=== PATIENT | female | born 1980 | race Caucasian/White ===

== ENCOUNTER 2019-04-20 16:16 | Inpatient (IN) | payer BC ==
[2019-04-20] MEDS ORDERED: KETOROLAC 30 MG/ML 1 ML VIAL IVP STA (16:46)
[2019-04-20] MEDS ORDERED: SODIUM CHLORIDE 0.9% 1,000 ML IV STA (16:46)
--- NOTE | 2019-04-20 17:09 | ED ---
Abdominal Pain HPI - General Chief Complaint: Abdominal Pain Stated Complaint: POSS APPENDICITIS, SENT BY DR SPEARS Time Seen by Provider: 04/20/19 16:28 Source: patient Mode of arrival: ambulatory Limitations: no limitations - History of Present Illness Initial Comments: Patient is a 38-year-old female presenting to the emergency Department with complaints of right lower quadrant abdominal pain that started suddenly approximately 3 hours prior to arrival. Patient states she went to urgent care who then sent her to the ER for evaluation. Patient describes the pain as severe. Patient did have some nausea as well. Patient denies fever, chills, vo miting, diarrhea. Patient had normal bowel movement earlier today. Patient has history of 3 C-sections and cholecystectomy. No other abdominal surgeries. Patient states she is currently breast-feeding 4-month-old. Patient states no chance for because they have not had intercourse since before the baby was born. Patient denies chest pain, shortness of breath. Patient has no other complaints at this time. Upon arrival to the ER, vital signs are stable. - Related Data Home Medications Medication Instructions Recorded Confirmed Fenugreek 1 cap PO TID 04/20/19 04/20/19 Yag-Qmng-Tpbrm Acid 1 cap PO DAILY 04/20/19 04/20/19 [-U Capsule (formulary)] Allergies Allergy/AdvReac Type Severity Reaction Status Date / Time sulfamethoxazole Allergy Rash/Hives Verified 04/20/19 19:09 [From Bactrim] trimethoprim [From Bactrim] Allergy Rash/Hives Verified 04/20/19 19:09 Review of Systems ROS Statement: Those systems with pertinent positive or pertinent negative responses have been documented in the HPI. ROS Other: All systems not noted in ROS Statement are negative. Past Medical History Past Medical History: No Reported History History of Any Multi-Drug Resistant Organisms: None Reported Past Surgical History: Section, Cholecystectomy Additional Past Surgical History / Comment(s): vein surgery Past Psychological History: No Psychological Hx Reported Smoking Status: Never smoker Past Alcohol Use History: None Reported Past Drug Use History: None Reported General Exam - General Exam Comments Initial Comments: GENERAL: Well-appearing, well-nourished and in no acute distress, but appears uncomfortable. HEAD: Atraumatic, normocephalic. EYES: Pupils equal round and reactive to light, extraocular movements intact, sclera anicteric, conjunctiva are normal. ENT: Nares patent, oropharynx clear without exudates. Moist mucous membranes. NECK: Normal range of motion, supple without lymphadenopathy or JVD. LUNGS: Breath sounds clear to auscultation bilaterally and equal. No wheezes rales or rhonchi. HEART: Regular rate and rhythm without murmurs, rubs or gallops. ABDOMEN: Tender to palpation of the right lower quadrant and mid abdominal. Patient is guarding and positive rebound. Soft, normoactive bowel sounds. No masses appreciated. : Deferred EXTREMITIES: Normal range of motion, no pitting or edema. No clubbing or cyanosis. NEUROLOGICAL: Normal speech, normal gait. PSYCH: Normal mood, normal affect. SKIN: Warm, Dry, normal turgor, no rashes or lesions noted. Limitations: no limitations Course Vital Signs 04/20/19 04/20/19 04/20/19 16:23 17:54 18:57 Temperature 97.6 F Pulse Rate 53 L 67 Respiratory 20 16 16 Rate Blood Pressure 138/85 127/72 O2 Sat by Pulse 99 99 Oximetry Medical Decision Making - Medical Decision Making Patient is a 38-year-old female with sudden onset right abdominal pain 3 hours prior to arrival. Vital signs are stable, afebrile. Lab work shows a 12,000 white count, rest of labs are within normal limits. Lactic acid is 1.3. UA is normal. CT of the abdomen was obtained and shows an incarcerated ventral hernia containing small bowel. Hernia is below the umbilicus. There is a partial small bowel obstruction. Case was discussed with Dr. Lancaster. Dr. Cueva was consulted and will admit the patient. Patient will be started on Zosyn, kept NPO, NG tube will be inserted, and pain medications. Patient is agreement with this plan of care. Of note, patient is currently breast-feeding and is re questing a breast pump. - Lab Data Result diagrams: 04/20/19 17:05 04/20/19 17:05 Lab Results 04/20/19 04/20/19 04/20/19 Range/Units 17:05 17:05 17:05 WBC (3.8-10.6) k/uL RBC (3.80-5.40) m/uL Hgb (11.4-16.0) gm/dL Hct (34.0-46.0) % MCV (80.0-100.0) fL MCH (25.0-35.0) pg MCHC (31.0-37.0) g/dL RDW (11.5-15.5) % Plt Count (150-450) k/uL Neutrophils % % Lymphocytes % % Monocytes % % Eosinophils % % Basophils % % Neutrophils # (1.3-7.7) k/uL Lymphocytes # (1.0-4.8) k/uL Monocytes # (0-1.0) k/uL Eosinophils # (0-0.7) k/uL Basophils # (0-0.2) k/uL PT (9.0-12.0) sec INR (<1.2) APTT (22.0-30.0) sec Sodium 137 (137-145) mmol/L Potassium 4.6 (3.5-5.1) mmol/L Chloride 102 (98-107) mmol/L Carbon Dioxide 25 (22-30) mmol/L Anion Gap 10 mmol/L BUN 26 H (7-17) mg/dL Creatinine 0.82 (0.52-1.04) mg/dL Est GFR (CKD-EPI)AfAm >90 (>60 ml/min/1.73 sqM) Est GFR (CKD-EPI)NonAf 90 (>60 ml/min/1.73 sqM) Glucose 87 (74-99) mg/dL Plasma Lactic Acid Chi (0.7-2.0) mmol/L Calcium 9.9 (8.4-10.2) mg/dL Total Bilirubin 1.1 (0.2-1.3) mg/dL AST 39 H (14-36) U/L ALT 29 (9-52) U/L Alkaline Phosphatase 68 (38-126) U/L Total Protein 7.9 (6.3-8.2) g/dL Albumin 4.5 (3.5-5.0) g/dL Amylase 46 (30-110) U/L Lipase 47 (23-300) U/L Urine Color Yellow Urine Appearance Clear (Clear) Urine pH 6.5 (5.0-8.0) Ur Specific [place] 1.019 (1.001-1.035) Urine Protein Negative (Negative) Urine Glucose (UA) Negative (Negative) Urine Ketones Negative (Negative) Urine Blood Negative (Negative) Urine Nitrite Negative (Negative) Urine Bilirubin Negative (Negative) Urine Urobilinogen <2.0 (<2.0) mg/dL Ur Leukocyte Esterase Negative (Negative) Urine HCG, Qual Not Detected (Not Detectd) 04/20/19 04/20/19 04/20/19 Range/Units 17:05 17:05 17:05 WBC 12.8 H (3.8-10.6) k/uL RBC 4.64 (3.80-5.40) m/uL Hgb 14.2 (11.4-16.0) gm/dL Hct 40.9 (34.0-46.0) % MCV 88.2 (80.0-100.0) fL MCH 30.6 (25.0-35.0) pg MCHC 34.8 (31.0-37.0) g/dL RDW 11.9 (11.5-15.5) % Plt Count 325 (150-450) k/uL Neutrophils % 83 % Lymphocytes % 11 % Monocytes % 3 % Eosinophils % 1 % Basophils % 0 % Neutrophils # 10.6 H (1.3-7.7) k/uL Lymphocytes # 1.4 (1.0-4.8) k/uL Monocytes # 0.4 (0-1.0) k/uL Eosinophils # 0.1 (0-0.7) k/uL Basophils # 0.0 (0-0.2) k/uL PT 10.1 (9.0-12.0) sec INR 0.9 (<1.2) APTT 26.0 (22.0-30.0) sec Sodium (137-145) mmol/L Potassium (3.5-5.1) mmol/L Chloride (98-107) mmol/L Carbon Dioxide (22-30) mmol/L Anion Gap mmol/L BUN (7-17) mg/dL Creatinine (0.52-1.04) mg/dL Est GFR (CKD-EPI)AfAm (>60 ml/min/1.73 sqM) Est GFR (CKD-EPI)NonAf (>60 ml/min/1.73 sqM) Glucose (74-99) mg/dL Plasma Lactic Acid Chi 1.3 (0.7-2.0) mmol/L Calcium (8.4-10.2) mg/dL Total Bilirubin (0.2-1.3) mg/dL AST (14-36) U/L ALT (9-52) U/L Alkaline Phosphatase (38-126) U/L Total Protein (6.3-8.2) g/dL Albumin (3.5-5.0) g/dL Amylase (30-110) U/L Lipase (23-300) U/L Urine Color Urine Appearance (Clear) Urine pH (5.0-8.0) Ur Specific [place] (1.001-1.035) Urine Protein (Negative) Urine Glucose (UA) (Negative) Urine Ketones (Negative) Urine Blood (Negative) Urine Nitrite (Negative) Urine Bilirubin (Negative) Urine Urobilinogen (<2.0) mg/dL Ur Leukocyte Esterase (Negative) Urine HCG, Qual (Not Detectd) Disposition Clinical Impression: Incarcerated ventral hernia, Small bowel obstruction Disposition: ADMITTED IP TO THIS [facility] Condition: Stable Is patient prescribed a controlled substance at d/c from ED?: No Referrals: Rajan Lancaster DO [Primary Care Provider] - 1-2 days Decision Date: 04/20/19 Decision Time: 19:17
[2019-04-20 17:38] LABS: Basophils % (A) 0 %; Eosinophils # (A) 0.1 k/uL (0-0.7); Eosinophils % (A) 1 %; HCT 40.9 % (34.0-46.0); HGB 14.2 gm/dL (11.4-16.0); Lymphocytes # (A) 1.4 k/uL (1.0-4.8); Lymphocytes % (A) 11 %; MCH 30.6 pg (25.0-35.0); MCHC 34.8 g/dL (31.0-37.0); MCV 88.2 fL (80.0-100.0); Mean Platelet Volume 5.5; Monocytes # (A) 0.4 k/uL (0-1.0); Monocytes % (A) 3 %; Neutrophils # (A) 10.6 k/uL (1.3-7.7); Neutrophils % (A) 83 %; Platelet Count 325 k/uL (150-450); RBC 4.64 m/uL (3.80-5.40); RDW 11.9 % (11.5-15.5); WBC 12.8 k/uL (3.8-10.6)
[2019-04-20 17:39] LABS: Appearance,Urine Clear (Clear); Bilirubin,Urine Negative (Negative); Blood,Urine Negative (Negative); Color,Urine Yellow; Glucose,Urine (UA) Negative (Negative); Ketones,Urine Negative (Negative); Leukocyte Esterase,Urine Negative (Negative); Nitrite,Urine Negative (Negative); PH, Urine 6.5 (5.0-8.0); Protein,Urine Negative (Negative); Specific Gravity,Urine 1.019 (1.001-1.035); Urobilinogen,Urine <2.0 mg/dL (<2.0)
[2019-04-20 17:41] LABS: INR 0.9 (<1.2); Prothrombin Time 10.1 sec (9.0-12.0)
[2019-04-20 17:56] LABS: ALT 29 U/L (9-52); AST 39 U/L (14-36); African American GFR (CKD) >90 (>60 ml/min/1.73 sqM); Albumin 4.5 g/dL (3.5-5.0); Alkaline Phosphatase 68 U/L (38-126); Amylase 46 U/L (30-110); Anion Gap 10 mmol/L; Blood Urea Nitrogen 26 mg/dL (7-17); Calcium 9.9 mg/dL (8.4-10.2); Carbon Dioxide 25 mmol/L (22-30); Chloride 102 mmol/L (98-107); Glucose 87 mg/dL (74-99); Non-African American GFR(CKD) 90 (>60 ml/min/1.73 sqM); Potassium 4.6 mmol/L (3.5-5.1); Sodium 137 mmol/L (137-145); Total Bilirubin 1.1 mg/dL (0.2-1.3); Total Protein 7.9 g/dL (6.3-8.2)
--- NOTE | 2019-04-20 18:40 | CT ---
EXAMINATION TYPE: CT abdomen pelvis w con DATE OF EXAM: 04/20/2019 COMPARISON: None HISTORY: RLQ pain with nausea. CT DLP: 1743.3 mGycm Automated exposure control for dose reduction was used. TECHNIQUE: Helical acquisition of images was performed from the lung bases through the pelvis. CONTRAST: Performed without Oral Contrast and with IV Contrast, patient injected with 100 mL of Isovue 300. FINDINGS: Multiple axial sections were obtained from the diaphragm to the floor the pelvis with intravenous con trast. Lung bases show no pulmonary consolidation. There is no pleural effusion. There is no pericardial eff usion. Heart is top normal in size. Stomach is intact. There are clips from cholecystectomy. Liver and spleen appear normal. Bile ducts a re not dilated. There is no evidence of pancreatic mass. There is no adrenal mass. Kidneys show satisfactory contrast opacification. There is no hydronephrosis. Appendix appears normal . Bladder distends smoothly. There is no inguinal hernia. There is no evidence of a pelvic mass. Uter us is anteverted. There is degenerative disc narrowing at L3-4 L4-5. There is no lumbar compression f racture. There is no mesenteric edema. There is no ascites or free air. There are some fluid-filled distended small bowel loops in the mid abdomen. The distal small bowel loops are not dilated. There is a ventral hernia that contains incarcerated small bowel. This appears to be a transition poi nt. Hernia sac measures 7.5 x 3 cm. IMPRESSION: THERE IS INCARCERATED VENTRAL HERNIA CONTAINING SMALL BOWEL. HERNIA IS BELOW THE UMBILICUS. THERE IS PARTIAL MECHANICAL SMALL BOWEL OBSTRUCTION.
[2019-04-20] MEDS ORDERED: ACETAMINOPHEN TAB 325 MG TAB PO PRN (19:03)
[2019-04-20] MEDS ORDERED: NALOXONE 0.4 MG/ML 1 ML VIAL IV PRN (19:03)
[2019-04-20] MEDS ORDERED: MORPHINE SULFATE 4 MG/ML SYRINGE IV PRN (19:03)
[2019-04-20] MEDS ORDERED: PIPERACILLIN-TAZOBACTAM 3.375 GM in SODIUM CHLORIDE 0.9% 100 ML IVPB STA (19:07)
[2019-04-20] MEDS: SODIUM CHLORIDE 0.9% 1,000 ML IV SCH (19:47)
--- NOTE | 2019-04-20 21:05 | XR ---
EXAMINATION TYPE: XR chest 1V confirm line [facility] DATE OF EXAM: 04/20/2019 COMPARISON: NONE HISTORY: NG tube placement TECHNIQUE: Single frontal view of the chest is obtained. FINDINGS: There is nasogastric tube with the tip probably in the distal stomach. Heart and mediastin um are normal. Lungs are clear of infiltrate. There is no pleural effusion. There are no hilar masses . IMPRESSION: NG tube in the distal stomach.
[2019-04-20] MEDS: KETOROLAC 30 MG/ML 1 ML VIAL IVP PRN (23:50)
[2019-04-21] MEDS: KETOROLAC 30 MG/ML 1 ML VIAL IVP PRN ×2 (05:16→22:57)
[2019-04-21] MEDS: ONDANSETRON 4 MG/2 ML VIAL IVP PRN ×2 (05:16→16:01)
[2019-04-21] MEDS: SODIUM CHLORIDE 0.9% 1,000 ML IV SCH ×2 (07:50→23:36)
--- NOTE | 2019-04-21 09:40 | P.GSHP ---
History of Present Illness H&P Date: 04/21/19 Chief Complaint: abdominal pain CHIEF COMPLAINT: Abdominal pain HISTORY OF PRESENT ILLNESS: 38-year-old female who presented to the emergency room with a chief complaint of abdominal pain. Patient reports she began having generalized severe abdominal pain yesterday around noon. She denies nausea or vomiting. Denies diarrhea or constipation. Patient is 4 months post with her third child, all delivered via . She is currently breast-feeding. PAST MEDICAL HISTORY: See list. PAST SURGICAL HISTORY: See list. SOCIAL HISTORY: No illicit drug use. REVIEW OF SYSTEMS: CONSTITUTIONAL: Denies fever or chills. HEENT: Denies blurred vision, vision changes, or eye pain. Denies hemoptysis CARDIOVASCULAR: Denies chest pain or pressure. RESPIRATORY: No shortness of breath. GASTROINTESTINAL: Refer to HPI for pertinent findings HEMATOLOGIC: Denies bleeding disorders. GENITOURINARY: Denies any blood in urine. SKIN: Denies pruitis. Denies rash. PHYSICAL EXAM: VITAL SIGNS: Reviewed. GENERAL: Well-developed in no acute distress. HEENT: NG tube to low intermittent suction with dark bilious drainage. No sclera icterus. Extraocular movements grossly intact. Moist buccal mucosa. Head is atraumatic, normocephalic. ABDOMEN: Soft. Nondistended. Mild pain with tenderness near hernia site. Positive bowel sounds. NEUROLOGIC: Alert and oriented. Cranial nerves II through XII grossly intact. LABORATORY DATA: WBC 12.8. Hemoglobin 14.2. Platelet count 325. Sodium 137. Potassium 4.6. BUN 26. Creatinine 0.82. Lactic acid 1.3. IMAGING: CT abdomen pelvis: Incarcerated ventral hernia containing small bowel. Hernia is below the umbilicus. There is partial mechanical small bowel obstruction. ASSESSMENT: 1. Abdominal pain 2. Incarcerated ventral hernia containing small bowel with partial mechanical small bowel obstruction 3. 4 months PLAN: 1. Nothing by mouth. Continue IV fluids 2. Consult Dr. Hutton for medical management 3. GI and DVT prophylaxis 4. Continue NG to LIS 5. Patient to undergo repair of incarcerated ventral hernia today with Dr. Bales Nurse practitioner note has been reviewed by physician. Signing provider agrees with the documented findings, assessment, and plan of care. Past Medical History Past Medical History: No Reported History History of Any Multi-Drug Resistant Organisms: None Reported Past Surgical History: Section, Cholecystectomy Additional Past Surgical History / Comment(s): vein surgery Past Psychological History: No Psychological Hx Reported Smoking Status: Never smoker Past Alcohol Use History: None Reported Past Drug Use History: None Reported - Past Family History Father Family Medical History: No Reported History Mother Family Medical History: No Reported History Medications and Allergies Home Medications Medication Instructions Recorded Confirmed Type Fenugreek 1 cap PO TID 04/20/19 04/20/19 History Fvb-Gjet-Hqhzy Acid 1 cap PO DAILY 04/20/19 04/20/19 History [-U Capsule (formulary)] Allergies Allergy/AdvReac Type Severity Reaction Status Date / Time sulfamethoxazole Allergy Rash/Hives Verified 04/20/19 19:09 [From Bactrim] trimethoprim [From Bactrim] Allergy Rash/Hives Verified 04/20/19 19:09 Surgical - Exam Vital Signs Temp Pulse Resp BP Pulse Ox 97.6 F 53 L 20 138/85 99 04/20/19 16:23 04/20/19 16:23 04/20/19 16:23 04/20/19 16:23 04/20/19 16:23 Results - Labs 04/20/19 17:05 04/20/19 17:05 Abnormal Lab Results - Last 24 Hours (Table) 04/20/19 04/20/19 Range/Units 17:05 17:05 WBC 12.8 H (3.8-10.6) k/uL Neutrophils # 10.6 H (1.3-7.7) k/uL BUN 26 H (7-17) mg/dL AST 39 H (14-36) U/L Diabetes panel 04/20/19 Range/Units 17:05 Sodium 137 (137-145) mmol/L Potassium 4.6 (3.5-5.1) mmol/L Chloride 102 (98-107) mmol/L Carbon Dioxide 25 (22-30) mmol/L BUN 26 H (7-17) mg/dL Creatinine 0.82 (0.52-1.04) mg/dL Glucose 87 (74-99) mg/dL Calcium 9.9 (8.4-10.2) mg/dL AST 39 H (14-36) U/L ALT 29 (9-52) U/L Alkaline Phosphatase 68 (38-126) U/L Total Protein 7.9 (6.3-8.2) g/dL Albumin 4.5 (3.5-5.0) g/dL Calcium panel 04/20/19 Range/Units 17:05 Calcium 9.9 (8.4-10.2) mg/dL Albumin 4.5 (3.5-5.0) g/dL Pituitary panel 04/20/19 Range/Units 17:05 Sodium 137 (137-145) mmol/L Potassium 4.6 (3.5-5.1) mmol/L Chloride 102 (98-107) mmol/L Carbon Dioxide 25 (22-30) mmol/L BUN 26 H (7-17) mg/dL Creatinine 0.82 (0.52-1.04) mg/dL Glucose 87 (74-99) mg/dL Calcium 9.9 (8.4-10.2) mg/dL Adrenal panel 04/20/19 Range/Units 17:05 Sodium 137 (137-145) mmol/L Potassium 4.6 (3.5-5.1) mmol/L Chloride 102 (98-107) mmol/L Carbon Dioxide 25 (22-30) mmol/L BUN 26 H (7-17) mg/dL Creatinine 0.82 (0.52-1.04) mg/dL Glucose 87 (74-99) mg/dL Calcium 9.9 (8.4-10.2) mg/dL Total Bilirubin 1.1 (0.2-1.3) mg/dL AST 39 H (14-36) U/L ALT 29 (9-52) U/L Alkaline Phosphatase 68 (38-126) U/L Total Protein 7.9 (6.3-8.2) g/dL Albumin 4.5 (3.5-5.0) g/dL
[2019-04-21] MEDS ORDERED: IV FLUID CONTINUATION 1,000 ML IV ONE (14:31)
[2019-04-21] MEDS ORDERED: PROPOFOL 10 MG/ML 20 ML VIAL IV ONE (16:30)
[2019-04-21] MEDS ORDERED: LIDOCAINE 1% INJ 10MG/ML (20 ML MDV) ONE (16:30)
[2019-04-21] MEDS ORDERED: SUCCINYLCHOLINE CHLORIDE 100 MG/5 ML SYR IV ONE (16:30)
[2019-04-21] MEDS ORDERED: fentaNYL (PF) 50 MCG/ML 2 ML AMP IVP ONE ×2 (16:30→16:32)
[2019-04-21] MEDS ORDERED: GLYCOPYRROLATE 0.2 MG/ML 2 ML VIAL ONE (16:30)
[2019-04-21] MEDS ORDERED: ROCURONIUM BROMIDE 10 MG/ML 10 ML VIAL IV ONE (16:30)
[2019-04-21] MEDS ORDERED: NEOSTIGMINE 1 MG/ML 10 ML VIAL ONE (16:30)
[2019-04-21] MEDS ORDERED: LACTATED RINGERS 1,000 ML IV ONE ×2 (16:56)
[2019-04-21] MEDS ORDERED: SODIUM CHLORIDE 0.9% 100 ML with ceFAZolin 2,000 MG IV ONE ×2 (17:03)
[2019-04-21] MEDS ORDERED: HYDROmorphone 1 MG/ML 1 ML SYRINGE IM PRN (17:43)
--- NOTE | 2019-04-21 17:43 | P.OP ---
Date of Procedure: 04/21/19 Preoperative Diagnosis: Incarcerated incisional hernia Postoperative Diagnosis: Incarcerated incisional hernia Procedure(s) Performed: Repair of incarcerated incisional hernia Anesthesia: RADHA Surgeon: Joaquim Bales Estimated Blood Loss (ml): 10 Pathology: none sent Condition: stable Disposition: PACU Description of Procedure: The patient's placed on the operative table in the supine position. She received general anesthesia. Her abdomen was prepped and draped in usual cathy rile fashion. The skin was incised in the low midline position. And then using left cautery the subcu tissue divided. The patient appeared to have an incisional hernia related to her previous Pfannenstiel incision. The fascia was opened and then below the fascia there appeared to be a hernia sac containing incarcerated small bowel. The neck of the hernia was opened and then the small bowel was visualized. The small bowel appeared to be slightly hemorrhagic but however it was viable. The small bowel back into the. Cavity. The hernia was then closed using #1 strap fixed suture. 2 sutures were used to close the hernia defect. The skin was closed janny. Patient tolerated the procedure well. she will was sent to recovery room in stable condition.
[2019-04-21] MEDS: HEPARIN SODIUM,PORCINE 5,000 UNIT/ML 1 ML VIAL SQ SCH (18:59)
[2019-04-21] MEDS: PIPERACILLIN-TAZOBACTAM 3.375 GM in SODIUM CHLORIDE 0.9% 100 ML IVPB SCH ×2 (18:59→23:36)
--- NOTE | 2019-04-21 19:04 | P.CONS ---
History of Present Illness - Reason for Consult Consult date: 04/21/19 Medical management Requesting physician: Joaquim Bales - Chief Complaint Abdominal pain - History of Present Illness Consultation: This is a very pleasant 38-year-old patient of Dr. finch. Patient delivered of a baby boy 4 months ago. She had a section. The baby is being breast feeding. Patient had a gallbladder taken out 18 years ago by laparoscope E. A day ago patient started of increasing abdominal pain in the right lower quadrant. Not feeling like her pain. Told her to present to the hospital. Last bowel movement was yesterday. No fever no chills. Her nausea. Patient had a computed tomography scan of the abdomen in the ER that showed a ventral hernia the small bowel obstruction. Admitted for the same. NG tube was placed to suction. IV fluids were given. by the bedside. No fever no chills. Review of systems: GEN.: Tired EYES: None HEENT: None NECK: None RESPIRATORY: None CARDIOVASCULAR: None GASTROINTESTINAL: As above] GENITOURINARY: None MUSCULOSKELETAL: None LYMPHATICS: None HEMATOLOGICAL: None PSYCHIATRY: None NEUROLOGICAL: None Past medical history to include: section 4 months ago Social history: Does not smoke or drink alcohol. Lives at home with her with 3 children. Did move here some time ago from [place]. Family history: Reviewed, noncontributory to presentation Physical examination: VITAL SIGNS: 98.5, 69, 18, 130/84, 94 percent room air GENERAL: BMI 34.4, laying in bed not in distress. EYES: Pupils equal. Conjunctiva normal. HEENT: External appearance of nose and ears normal, oral cavity grossly normal NG tube in place. NECK: JVD not raised; masses not palpable. HEART: First and second heart sounds are normal; no edema. LUNGS: Respiratory rate normal; clear to auscultation. ABDOMEN: Soft, some tenderness, no guarding or rigidity rigidity, pulse is present, liver spleen not palpable, no masses palpable. PSYCH: Alert and oriented x3; mood and affect normal. NEUROLOGICAL: Cranial nerves grossly intact; no facial asymmetry, power and s ensation grossly intact. LYMPHATICS: No lymph nodes palpable in the axilla and neck INVESTIGATIONS, reviewed in the clinical context: White count 12.8 hemoglobin 40.2 platelets were 325 pressure 4.6 bun 26 creatinine 0.82 Chest x-ray film personally reviewed by me-AP film-lung lott clear Computed tomography scan of the abdomen and pelvis-ventral hernia that contains incarcerated small bowel Assessment: -Acute abdominal wall ventral hernia causing partial incarcerated small bowel obstruction -Obesity BMI 34.4 - 4 months following this is a section, patient is breast-feeding Plan: -Prescribed NG tube in place. Getting IV fluids. We'll abdominal surgery due to prophylaxis. Discussed with the patient and . Hopefully conservative approach may help otherwise patient will need to go down for surgery. Patient that case is medically stable. Follow electrolytes. Thank you Dr. Bales Past Medical History Past Medical History: No Reported History History of Any Multi-Drug Resistant Organisms: None Reported Past Surgical History: Section, Cholecystectomy Additional Past Surgical History / Comment(s): vein surgery Past Psychological History: No Psychological Hx Reported Smoking Status: Never smoker Past Alcohol Use History: None Reported Past Drug Use History: None Reported - Past Family History Father Family Medical History: No Reported History Mother Family Medical History: No Reported History Medications and Allergies Home Medications Medication Instructions Recorded Confirmed Type Fenugreek 1 cap PO TID 04/20/19 04/20/19 History Mcq-Gtgt-Vytbi Acid 1 cap PO DAILY 04/20/19 04/20/19 History [-U Capsule (formulary)] Allergies Allergy/AdvReac Type Severity Reaction Status Date / Time sulfamethoxazole Allergy Rash/Hives Verified 04/20/19 19:09 [From Bactrim] trimethoprim [From Bactrim] Allergy Rash/Hives Verified 04/20/19 19:09 Physical Exam Vitals: Vital Signs Temp Pulse Pulse Resp BP BP Pulse Ox 04/21/19 06:46 98.5 F 79 18 130/84 94 L 04/21/19 01:09 97.9 F 61 18 131/84 98 04/20/19 21:48 97.9 F 56 L 14 140/91 100 04/20/19 18:57 67 16 127/72 99 04/20/19 17:54 16 04/20/19 16:23 97.6 F 53 L 20 138/85 99 Intake and Output 04/20/19 04/21/19 04/21/19 22:59 06:59 14:59 Intake Total 0 0 Output Total 550 Balance 0 -550 Intake: Oral 0 0 Output: Gastric Drainage 350 Emesis 200 Other: Voiding Method Toilet Toilet # Voids 1 Weight 108.862 kg Results CBC & Chem 7: 04/20/19 17:05 04/20/19 17:05 Labs: Abnormal Lab Results - Last 24 Hours (Table) 04/20/19 04/20/19 Range/Units 17:05 17:05 WBC 12.8 H (3.8-10.6) k/uL Neutrophils # 10.6 H (1.3-7.7) k/uL BUN 26 H (7-17) mg/dL AST 39 H (14-36) U/L
[2019-04-21 20:07] VITALS: RESP 18
[2019-04-22 07:15] VITALS: BP 123/75; PULSE 80
[2019-04-22 07:36] VITALS: TEMP 97.9
[2019-04-22] MEDS: HEPARIN SODIUM,PORCINE 5,000 UNIT/ML 1 ML VIAL SQ SCH (08:29)
[2019-04-22] MEDS: PIPERACILLIN-TAZOBACTAM 3.375 GM in SODIUM CHLORIDE 0.9% 100 ML IVPB SCH (08:29)
[2019-04-22] MEDS: SODIUM CHLORIDE 0.9% 1,000 ML IV SCH (08:30)
[2019-04-22] MEDS ORDERED: PANTOPRAZOLE 40 MG/10 ML VIAL IVP SCH (09:00)
--- NOTE | 2019-04-22 13:48 | P.DS ---
Providers Date of admission: 04/20/19 19:13 Expected date of discharge: 04/22/19 Attending physician: Joaquim Bales Consults: 04/21/19 10:38 Consult Physician Routine Consulting Provider: John Noriega Consult Reason/Comments: Medical Management Do you want consulting provider notified?: Already Contacted Primary care physician: Rajan [facility] Course: 38-year-old female who presented to the emergency room with a chief complaint of abdominal pain. Patient reports she began having generalized severe abdominal pain yesterday around noon. She denies nausea or vomiting. Denies diarrhea or constipation. Patient is 4 months post with her third child, all delivered via . She is currently breast-feeding. The patient underwent repair of incarcerated incisional hernia. The patient is doing well postoperatively without any immediate complications. She is stable for discharge home today per Dr. Bales. Please see EMR for further hospital course details. Discharge Diagnosis: 1. Abdominal pain 2. Incarcerated incisional hernia containing small bowel with partial mechanical small bowel obstruction 3. 4 months Nurse practitioner note has been reviewed by physician. Signing provider agrees with the documented findings, assessment, and plan of care. Patient Condition at Discharge: Stable Plan - Discharge Summary Discharge Rx Participant: Yes New Discharge Prescriptions: No Action Pds-Gelf-Dooue Acid [-U Capsule (formulary)] 1 cap PO DAILY Fenugreek 1 cap PO TID Discharge Medication List Fenugreek 1 cap PO TID 04/20/19 [History] Jue-Ikss-Cuuyc Acid [-U Capsule (formulary)] 1 cap PO DAILY 04/20/19 [History] Follow up Appointment(s)/Referral(s): Rajan Lancaster DO [Primary Care Provider] - 1-2 days Joaquim Bales MD [STAFF PHYSICIAN] - 1 Week Activity/Diet/Wound Care/Special Instructions: Tylenol or motrin as needed for pain No lifting over 10-15 pounds Light activity Diet as tolerated You may shower. No soaking or tub baths
--- NOTE | 2019-04-26 16:18 | P.PN ---
Progress Note - Text Progress Note Date: 04/22/19 - Chief Complaint Abdominal pain Interval history: This is a very pleasant 38-year-old patient of Dr. ficnh. Patient delivered of a baby boy 4 months ago. She had a section. The baby is being breast feeding. Patient had a gallbladder taken out 18 years ago by laparoscopically. A day ago patient started of increasing abdominal pain in the right lower quadrant. Not feeling like her pain. Told her to present to the hospital. Last bowel movement was yesterday. No fever no chills. Her nausea. Patient had a computed tomography scan of the abdomen in the ER that showed a ventral hernia the small bowel obstruction. Admitted for the same. NG tube was placed to suction. IV fluids were given. by the bedside. No fever no chills. Yesterday patient underwent successful repair of incarcerated incisional hernia. Doing much better today. Pain is controlled. No nausea vomiting. Tolerating a diet. Has been out of bed. Progress review of systems Current medications reviewed from today's electronic record Physical examination: VITAL SIGNS: 97.9, 80, 18, 123/75, 95% room air GENERAL: BMI 34.4, sitting on bed, more cheerful. EYES: Pupils equal. Conjunctiva normal. HEENT: External appearance of nose and ears normal, oral cavity grossly normal NG tube in place. NECK: JVD not raised; masses not palpable. HEART: First and second heart sounds are normal; no edema. LUNGS: Respiratory rate normal; clear to auscultation. ABDOMEN: Soft, some tenderness, no guarding or rigidity rigidity, bowel sounds present, liver spleen not palpable, no masses palpable. PSYCH: Alert and oriented x3; mood and affect normal. INVESTIGATIONS, reviewed in the clinical context: White count 12.8 hemoglobin 40.2 platelets were 325 pressure 4.6 bun 26 creatinine 0.82 Chest x-ray film personally reviewed by me-AP film-lung lott clear Computed tomography scan of the abdomen and pelvis-ventral hernia that contains incarcerated small bowel Assessment: -Acute abdominal wall ventral hernia causing partial incarcerated small bowel obstruction, status post surgical repair -Obesity BMI 34.4 - 4 months following this is a section, patient is breast- feeding -Leukocytosis, reactive Plan: Doing well. Diet advanced per surgery. No new issues. Patient has been out of bed. Thank you Dr. Bales
== END 2019-04-22 15:20 | disposition home or self-care (01) | DRG 354 ==
LOC: EC 16:16 → 4SSUR 19:13
PROVIDERS: ADMIT Surgery; ATTEND Surgery
PROC: 0WQF0ZZ Repair Abdominal Wall, Open Approach (ICD-10-PCS; principal; 2019-04-21 11:10)
DX: K43.0 Incisional hernia with obstruction, without gangrene (principal); K56.690 Other partial intestinal obstruction; E66.9 Obesity, unspecified; Z68.34 Body mass index [BMI] 34.0-34.9, adult; Z98.891 History of uterine scar from previous surgery
CPT/HCPCS: 36415; 74177; 80053; 81003; 81025; 82150; 83605; 83690; 85025; 85610; 85730; 96361; 96365; 96375; 99285

== ENCOUNTER 2019-06-29 21:26 | Emergency (ER) | payer BC ==
[2019-06-29 21:54] VITALS: BP 123/64; PULSE 93; RESP 18; TEMP 98.5
--- NOTE | 2019-06-29 22:40 | ED ---
ENT HPI - General Chief complaint: ENT Stated complaint: facial swelling Time Seen by Provider: 06/29/19 22:04 Source: patient Mode of arrival: ambulatory Limitations: no limitations - History of Present Illness Initial comments: Patient is a 39-year-old female presenting to the emergency department with a chief complaint of facial swelling. Patient states last night she noticed bilateral facial swelling around the angle of the mandible. Patient reports she woke up this morning with increased swelling and now she has developed pain that is exacerbated with mastication. Patient also had some dysphasia as well but denies any changes to her voice or drooling. Patient reports she went to an urgent care this morning and was started on Augmentin. Patient states she already took a single dose of Augmentin in the pain is completely resolved. However, the patient states the swelling still persists. Patient denies any dysphagia, down aphasia, drooling, changes in voice at this time. Patient denies any respiratory distress or dyspnea. Denies any neck pain and reports full range of motion of the neck. Patient states no previous history of dental infections or dental pain. Patient sees a dentist regularly. Patient states she already has mild tonsillar enlargement at baseline. - Related Data Home Medications Medication Instructions Recorded Confirmed [place] 1 cap PO TID 04/20/19 04/20/19 Cwr-Sekh-Rjmpy Acid 1 cap PO DAILY 04/20/19 04/20/19 [-U Capsule (formulary)] Allergies Allergy/AdvReac Type Severity Reaction Status Date / Time sulfamethoxazole Allergy Rash/Hives Verified 04/20/19 19:09 [From Bactrim] trimethoprim [From Bactrim] Allergy Rash/Hives Verified 04/20/19 19:09 Review of Systems ROS Statement: Those systems with pertinent positive or pertinent negative responses have been documented in the HPI. ROS Other: All systems not noted in ROS Statement are negative. Past Medical History Past Medical History: No Reported History History of Any Multi-Drug Resistant Organisms: None Reported Past Surgical History: Section, Cholecystectomy Additional Past Surgical History / Comment(s): vein surgery Past Psychological History: No Psychological Hx Reported Smoking Status: Never smoker Past Alcohol Use History: None Reported Past Drug Use History: None Reported - Past Family History Father Family Medical History: No Reported History Mother Family Medical History: No Reported History General Exam Limitations: no limitations General appearance: alert, in no apparent distress Head exam: Present: atraumatic, normocephalic, normal inspection Eye exam: Present: normal appearance, PERRL, EOMI Pupils: Present: normal accommodation ENT exam: Present: normal exam, normal oropharynx (Uvula midline. No tonsillar erythema or exudates. Mild tonsillar enlargement. No gingival erythema. No periapical abscesses. No oral lesions), mucous membranes dry, mucous membranes moist, TM's normal bilaterally Neck exam: Present: normal inspection, full ROM. Absent: tenderness, lymphadenopathy Respiratory exam: Present: normal lung sounds bilaterally Cardiovascular Exam: Present: regular rate, normal rhythm, normal heart sounds Extremities exam: Present: normal inspection, full ROM Back exam: Present: normal inspection, full ROM Neurological exam: Present: alert, oriented X3 Psychiatric exam: Present: normal affect, normal mood Skin exam: Present: warm, dry, intact, normal color Course Vital Signs 06/29/19 21:50 Temperature 98.5 F Pulse Rate 93 Respiratory 18 Rate Blood Pressure 123/64 O2 Sat by Pulse 99 Oximetry Medical Decision Making - Medical Decision Making Patient is a 39-year-old female presenting to the emergency department with a chief complaint of facial swelling. Physical examination patient does appear to have bilateral facial swelling near the angle of the mandible. Uvula midline. No tonsillar exudates, enlargement or erythema. No oral lesions noted. Patient started taking Augmentin this morning and the pain has since completely resolved only the swelling persists. No signs of acute oropharyngeal pathologies. Patient advised to continue taking the Augmentin. Patient advised take Benadryl. No drooling, dysphasia, odynophagia or dyspnea. Patient advised to follow-up with primary care. Strict return parameters were thoroughly discussed with patient was understanding and agreeable. Case discussed with physician. Disposition Clinical Impression: Facial swelling Disposition: HOME SELF-CARE Condition: Stable Instructions (If sedation given, give patient instructions): Atypical Facial Pain (ED) Additional Instructions: Please follow up with primary care. Take Benadryl at home. Continue taking the Augmentin. Return to emergency department if symptoms worsen. Is patient prescribed a controlled substance at d/c from ED?: No Referrals: Rajan Lancaster DO [Primary Care Provider] - 1-2 days Time of Disposition: 22:40
== END 2019-06-29 22:49 | disposition home or self-care (01) ==
LOC: EC 21:26
DX: R22.0 Localized swelling, mass and lump, head (principal); Z88.1 Allergy status to other antibiotic agents; Z88.2 Allergy status to sulfonamides
CPT/HCPCS: 99283

== ENCOUNTER → 2019-06-30 | Outpatient (CLI) | payer BC ==
[2019-06-30 10:39] LABS: Basophils % (A) 1 %; Eosinophils # (A) 0.3 k/uL (0-0.7); Eosinophils % (A) 5 %; HCT 42.8 % (34.0-46.0); Lymphocytes # (A) 1.2 k/uL (1.0-4.8); Lymphocytes % (A) 18 %; MCH 28.9 pg (25.0-35.0); MCHC 32.8 g/dL (31.0-37.0); MCV 88.2 fL (80.0-100.0); Mean Platelet Volume 6.8; Monocytes # (A) 0.5 k/uL (0-1.0); Monocytes % (A) 7 %; Neutrophils # (A) 4.5 k/uL (1.3-7.7); Neutrophils % (A) 67 %; Platelet Count 296 k/uL (150-450); RBC 4.85 m/uL (3.80-5.40); RDW 11.8 % (11.5-15.5); WBC 6.6 k/uL (3.8-10.6)
== END | disposition home or self-care (01) ==
LOC: LABWHC1 09:13
PROVIDERS: ATTEND Otolaryngology
DX: R22.1 Localized swelling, mass and lump, neck (principal); R53.83 Other fatigue; R22.0 Localized swelling, mass and lump, head
CPT/HCPCS: 36415; 85025; 86038; 86235; 86431

== ENCOUNTER → 2020-01-21 | Outpatient (CLI) | payer BC | END | disposition home or self-care (01) | LOC: LABWHC1 14:55 | PROVIDERS: ATTEND Obstetrics & Gynecology | DX: O20.0 Threatened abortion (principal) | CPT/HCPCS: 36415; 84702 ==

== ENCOUNTER → 2020-01-25 | Outpatient (CLI) | payer BC | END | disposition home or self-care (01) | LOC: LABWHC1 07:21 | PROVIDERS: ATTEND Obstetrics & Gynecology | DX: O20.0 Threatened abortion (principal) | CPT/HCPCS: 36415; 84702 ==